=== PATIENT | female | born 1980 ===

== ENCOUNTER 2020-07-07 17:44 | Emergency (ER) | payer BC, MEDICAID ==
[2020-07-07] MEDS ORDERED: LACTATED RINGERS 1,000 ML ONE ×2 (18:38→18:40)
[2020-07-07] MEDS ORDERED: NIFEdipine XL 30 MG TAB PO ONE (21:23)
[2020-07-07] MEDS ORDERED: ACETAMINOPHEN 500 MG TAB PO ONE (21:23)
--- NOTE | 2020-07-07 23:58 | Emergency Department Report ---
ED General Adult HPI - General Chief complaint: High BP Stated complaint: BLOOD PRESSURE Source: patient Mode of arrival: Ambulatory Limitations: No Limitations - History of Present Illness Initial comments: Patient is a 39-year-old -French female with a history of hypertension with poor compliance with medications who presents to the ED with persistently elevated blood pressure for the last 2 days after she ran out of her medications. Patient states that she takes amlodipine 10 mg daily and losartan 25 mg daily for her hypertension and that these usually help control her blood pressure. Patient denies chest pain, shortness of breath, dizziness, syncope, nausea, vomiting, cough, abdominal pain, diaphoresis, change in vision, syncope, seizures, neck pain, numbness and tingling or weakness of upper or lower extremities bilaterally and low back pain. MD Complaint: elevated blood pressure -: Sudden, days(s) (2) Location: head Radiation: non-radiation Severity scale (0 -10): 3 Quality: aching, dull Consistency: constant Improves with: none Worsens with: none Associated Symptoms: denies other symptoms. denies: confusion, chest pain, cough, diaphoresis, fever/chills, headaches, loss of appetite, malaise, nausea/vomiting, rash, seizure, shortness of breath, syncope Treatments Prior to Arrival: none - Related Data Previous Rx's Medication Instructions Recorded Last Taken Type Losartan [Cozaar] 25 mg PO QDAY #30 tablet 07/08/20 Unknown Rx amLODIPine 10 mg PO DAILY #30 tab 07/08/20 Unknown Rx Allergies Allergy/AdvReac Type Severity Reaction Status Date / Time No Known Allergies Allergy Unverified 07/07/20 18:15 ED Review of Systems ROS: Stated complaint: BLOOD PRESSURE Other details as noted in HPI Constitutional: other (Elevated blood pressure). denies: chills, fever Eyes: denies: eye pain, eye discharge, vision change ENT: denies: ear pain, throat pain Respiratory: denies: cough, shortness of breath, SOB with exertion, SOB at rest, wheezing Cardiovascular: denies: chest pain, palpitations Endocrine: no symptoms reported Gastrointestinal: denies: abdominal pain, nausea, vomiting, diarrhea Genitourinary: denies: urgency, dysuria, discharge Musculoskeletal: denies: back pain, joint swelling, arthralgia Skin: denies: rash, lesions Neurological: denies: headache, weakness, paresthesias Psychiatric: denies: anxiety, depression Hematological/Lymphatic: denies: easy bleeding, easy bruising ED Past Medical Hx - Past Medical History Previous Medical History?: Yes Hx Hypertension: Yes - Medications Home Medications: Home Medications Medication Instructions Recorded Confirmed Last Taken Type Losartan [Cozaar] 25 mg PO QDAY #30 tablet 07/08/20 Unknown Rx amLODIPine 10 mg PO DAILY #30 tab 07/08/20 Unknown Rx ED Physical Exam - General Limitations: No Limitations General appearance: alert, in no apparent distress - Head Head exam: Present: atraumatic, normocephalic, normal inspection - Eye Eye exam: Present: normal appearance, PERRL, EOMI Pupils: Present: normal accommodation - ENT ENT exam: Present: normal exam, normal orophraynx, mucous membranes moist, TM's normal bilaterally, normal external ear exam - Neck Neck exam: Present: normal inspection, full ROM - Respiratory Respiratory exam: Present: normal lung sounds bilaterally. Absent: respiratory distress, wheezes, rales, rhonchi, chest wall tenderness, accessory muscle use, decreased breath sounds, prolonged expiratory - Cardiovascular Cardiovascular Exam: Present: regular rate, normal rhythm, normal heart sounds. Absent: systolic murmur, diastolic murmur, rubs, gallop - GI/Abdominal GI/Abdominal exam: Present: soft, normal bowel sounds. Absent: tenderness, guarding, rebound, hyperactive bowel sounds, organomegaly - Extremities Exam Extremities exam: Present: normal inspection, full ROM, normal capillary refill - Back Exam Back exam: Present: normal inspection, full ROM. Absent: tenderness, CVA tenderness (R), CVA tenderness (L), muscle spasm, paraspinal tenderness, vertebral tenderness - Neurological Exam Neurological exam: Present: alert, oriented X3, CN II-XII intact, normal gait, reflexes normal - Psychiatric Psychiatric exam: Present: normal affect, normal mood - Skin Skin exam: Present: warm, dry, intact, normal color. Absent: rash ED Course Vital Signs 07/07/20 07/08/20 18:13 00:09 Temperature 97.4 F L 98.0 F Pulse Rate 61 63 Respiratory 16 18 Rate Blood Pressure 146/106 Blood Pressure 182/102 [Right] O2 Sat by Pulse 97 94 Oximetry ED Medical Decision Making - Medical Decision Making This is a 39-year-old -French female with a history of hypertension with poor compliance with medications who presents to the ED with persistently elevated blood pressure for the last 2 days after she ran out of her medications. Patient states that she takes amlodipine 10 mg daily and losartan 25 mg daily for her hypertension and that these usually help control her blood pressure. In the ED, patient is alert and oriented x3 and is not in distress. Patient was treated in the ED for hypertension and observed in the ED. On reevaluation, patient's blood pressure significantly improved with medication. Patient stated that she was feeling much better and was discharged home with a prescription of blood pressure medications and was given a referral to the [facility] for follow-up and to establish care. Patient was advised return to the ED immediately if symptoms get worse. - Differential Diagnosis Hypertensive emergency; ACS, tension headache, Critical care attestation.: If time is entered above; I have spent that time in minutes in the direct care of this critically ill patient, excluding procedure time. ED Disposition Clinical Impression: Uncontrolled stage 2 hypertension Disposition: DC- TO HOME OR SELFCARE Is pt being admited?: No Does the pt Need Aspirin: No Condition: Stable Instructions: Hypertension, Adult, [id number], Managing Your Hypertension, Hypertension (ED) Additional Instructions: Take your medications for hypertension to help manage your blood pressure. Follow-up with your primary care physician in 7 to 10 days for reevaluation. Return to the ED immediately if symptoms get worse. Prescriptions: amLODIPine 10 mg PO DAILY #30 tab Losartan [Cozaar] 25 mg PO QDAY #30 tablet Referrals: [facility] [Provider Group] - 7-10 days Time of Disposition: 23:58 Print Language: DOMINICAN
[2020-07-08 00:12] VITALS: BP 146/106
== END 2020-07-08 00:15 | disposition home or self-care (01) ==
LOC: ED 17:44
DX: I10 Essential (primary) hypertension (principal); Z79.899 Other long term (current) drug therapy
CPT/HCPCS: 99282; J7120